=== PATIENT | male | born 1990 | race Caucasian/White ===

== ENCOUNTER 2019-03-12 12:32 | Inpatient (IN) | payer OTHER ==
[2019-03-12 13:09] VITALS: BMI 50.1
--- NOTE | 2019-03-12 14:30 | HP ---
CIWA Score Nausea/Vomitin-Mild Nausea/No Vomiting Muscle Tremors: 3 Anxiety: 3 Agitation: 3 Paroxysmal Sweats: No Perspiration Orientation: 0-Oriented Tacttile Disturbances: 0-None Auditory Disturbances: 0-None Visual Disturbances: 0-None Headache: 2-Mild CIWA-Ar Total Score: 12 - Admission Criteria OASAS Guidelines: Admission for Medically Managed Detox: Requires at least one of the followin. CIWA greater than 12 2. Seizures within the past 24 hours 3. Delirium tremens within the past 24 hours 4. Hallucinations within the past 24 hours 5. Acute intervention needed for co occurring medical disorder 6. Acute intervention needed for co occurring psychiatric disorder 7. Severe withdrawal that cannot be handled at a lower level of care (continued vomiting, continued diarrhea, abnormal vital signs) requiring intravenous medication and/or fluids 8. Admission ROS [facility] Chief Complaint: alcohol detox Allergies/Adverse Reactions: Allergies Allergy/AdvReac Type Severity Reaction Status Date / Time No Known Allergies Allergy Verified 03/12/19 12:40 History of Present Illness: 28 yo with h/o opioid use disorder on methadone 135mg, here for alcohol detox. h /o ADHD and learning disability. Also on seroquel 200mg BID and 400mg qhs Alcohol- states he drinks 10 cans of beer, no /o DT's, h/o seizures 6 years ago from xanax Prescribed Klonopin- 6mg/day Istop- klonopin #90 tabs every month, 02/2019 - Ebola screening Have you traveled outside of the country in the last 21 days: No Have you had contact with anyone from an Ebola affected area: No Do you have a fever: No - Review of Systems Constitutional: No Symptoms Reported EENT: reports: No Symptoms Reported Respiratory: reports: No Symptoms reported Cardiac: reports: No Symptoms Reported GI: reports: No Symptoms Reported : reports: No Symptoms Reported Musculoskeletal: reports: No Symptoms Reported Integumentary: reports: No Symptoms Reported Neuro: reports: No Symptoms reported Endocrine: reports: No Symptoms Reported Hematology: reports: No Symptoms Reported Psychiatric: reports: No Sypmtoms Reported Patient History - Patient Medical History Hx Anemia: No Hx Asthma: No Hx Chronic Obstructive Pulmonary Disease (COPD): No Hx Cardiac Disorders: No Hx Hypertension: No Hx Hypercholesterolemia: No HX Cerebrovascular Accident: No Hx Seizures: No (BLACKOUTS) Hx Diabetes: No Hx Gastrointestinal Disorders: No Hx Liver Disease: No Hx Genitourinary Disorders: No Hx Sexually Transmitted Disorders: No Hx Renal Disease (ESRD): No Hx Human Immunodeficiency Virus (HIV): No (NEGATIVE HX) Hx Hepatitis C: No Hx Depression: Yes Hx Suicide Attempt: No (DENIES) Hx Bipolar Disorder: Yes (AND ANXIETY ) Hx Schizophrenia: No - Patient Surgical History Past Surgical History: No Hx Neurologic Surgery: No Hx Cataract Extraction: No Hx Cardiac Surgery: No Hx Lung Surgery: No Hx Breast Surgery: No Hx Breast Biopsy: No Hx Abdominal Surgery: No Hx Appendectomy: No Hx Cholecystectomy: No Hx Genitourinary Surgery: No Hx Section: No Hx Orthopedic Surgery: No Anesthesia Reaction: No - PPD History Date: 11/18/13 - Reproductive History Patient : Yes - Smoking Cessation Smoking history: Current every day smoker Have you smoked in the past 12 months: Yes Aproximately how many cigarettes per day: 20 Hx Chewing Tobacco Use: No Initiated information on smoking cessation: Yes 'Breaking Loose' booklet given: 03/12/19 - Substance & Tx. History Hx Alcohol Use: Yes Hx Substance Use: Yes Substance Use Type: Alcohol, Marijuana, Prescribed, Tranquilizers - Substances abused Alcohol Substance route: Oral Frequency: Daily Amount used: 24 cans of beers Age of first use: 23 Date of last use: 03/11/19 Admission Physical Exam [facility] - Vital Signs Vital Signs: Vital Signs - 24 hr 03/12/19 12:52 Temperature 97.2 F L Pulse Rate 137 H Respiratory 22 H Rate Blood Pressure 151/105 H - Physical General Appearance: Yes: Mild Distress, Obese, Sweating HEENTM: Yes: Within Normal Limits, Hearing grossly Normal, Normal ENT Inspection Respiratory: Yes: Within Normal Limits, Lungs Clear Neck: Yes: Within Normal Limits Cardiology: Yes: Within Normal Limits, Tachycardia Abdominal: Yes: Within Normal Limits, Protuberent Back: Yes: Within Normal Limits Musculoskeletal: Yes: Within Normal Limits Extremities: Yes: Within Normal Limits Neurological: Yes: Within Normal Limits, Fully Oriented, Other (slow speech- appropriate) Integumentary: Yes: Within Normal Limits Lymphatic: Yes: Within Normal Limits - Diagnostic (1) Alcohol dependence with uncomplicated withdrawal Current Visit: No Status: Acute (2) Cannabis dependence Current Visit: No Status: Acute (3) Bipolar disorder Current Visit: No Status: Chronic Qualifiers: Active/Remission status: remission status unspecified Qualified Code(s): F31.9 - Bipolar disorder, unspecified (4) Cigarette nicotine dependence Current Visit: No Status: Chronic Qualifiers: Substance use status: uncomplicated Qualified Code(s): F17.210 - Nicotine dependence, cigarettes, uncomplicated (5) Methadone maintenance therapy patient Current Visit: No Status: Chronic Breathalyzer - Breathalyzer Breathalyzer: 0 Urine Drug Screen - Test Device Lot number: [id number] Expiration date: 11/17/20 - Control Is test valid?: Yes - Results Drug screen NEGATIVE: Yes Urine drug screen results: THC-Marijuana, MTD-Methadone Inpatient Rehab Admission - Rehab Decision to Admit Inpatient rehab admission?: No
[2019-03-12] MEDS ORDERED: MAGNESIUM CITRATE 300 ML BOTTLE PO PRN (14:39)
[2019-03-12] MEDS ORDERED: BISMUTH SUBSALICYLATE 524 MG/30 ML UD PO PRN (14:39)
[2019-03-12] MEDS ORDERED: MAGNESIUM HYDROX 2400MG/30ML ORAL SUSPENSION 30 ML CUP PO PRN (14:39)
[2019-03-12] MEDS ORDERED: hydrOXYzine PAMOATE 25 MG CAPSULE (FP) PO PRN (14:39)
[2019-03-12] MEDS ORDERED: MENTHOL/PHENOL 1 EACH UD MM PRN (14:39)
[2019-03-12] MEDS ORDERED: QUEtiapine FUMARATE 200 MG TABLET PO PRN (14:39)
[2019-03-12] MEDS ORDERED: ACETAMINOPHEN 325 MG TABLET (FP) PO PRN ×2 (14:39)
[2019-03-12] MEDS ORDERED: METHOCARBAMOL 500 MG TABLET PO PRN (14:39)
[2019-03-12] MEDS: chlordiazePOXIDE HCL 25 MG CAPSULE PO PRN (17:09)
[2019-03-12 18:15] LABS: BILIRUBIN,TOTAL 0.3 mg/dL (0.2-1); CALCIUM 9.5 mg/dL (8.5-10.1); CREATININE 0.9 mg/dL (0.55-1.3); POTASSIUM 3.9 mmol/L (3.5-5.1); TOT PROT 7.9 g/dl (6.4-8.2)
[2019-03-12 18:19] LABS: HEMATOCRIT 39.6 % (35.4-49); HEMOGLOBIN 12.1 GM/dL (11.7-16.9); MCHC 30.7 g/dl (32.0-35.9); MEAN CELL VOLUME 64.7 fl (80-96); MEAN PLT VOLUME 8.7 fl (7.5-11.1); PLATELET COUNT 226 K/MM3 (134-434); RBC 6.12 M/mm3 (4.00-5.60); WHITE BLOOD COUNT 7.5 K/mm3 (4.0-10.0)
[2019-03-12 18:30] LABS: MCH 19.8 pg (25.7-33.7)
[2019-03-12] MEDS: NICOTINE POLACRILEX 2 MG GUM BUC PRN ×2 (18:47→22:11)
[2019-03-12] MEDS: chlordiazePOXIDE HCL 25 MG CAPSULE PO SCH (22:09)
[2019-03-12] MEDS: THIAMINE HCL 100 MG TABLET (FP) PO SCH (22:09)
[2019-03-12] MEDS: MELATONIN 5 MG TABLETS PO PRN (22:10)
[2019-03-12] MEDS: MAG HYDROX/AL HYDROX/SIMETH 30 ML UNIT-DOSE CUP PO PRN (22:52)
[2019-03-13] MEDS: chlordiazePOXIDE HCL 25 MG CAPSULE PO SCH ×4 (05:34→22:17)
[2019-03-13] MEDS ORDERED: METHADONE HCL 10 MG TABLET ONE (09:10)
[2019-03-13] MEDS ORDERED: METHADONE HCL 5 MG TABLET ONE (09:11)
[2019-03-13] MEDS ORDERED: METHADONE HCL 40 MG DISPERSABLE TABLET ONE (09:11)
[2019-03-13] MEDS: NICOTINE 21 MG/24 HOURS TOPICAL PATCH TD SCH (09:31)
[2019-03-13] MEDS: PRENATAL VITAMINS W/ FOLIC ACID TABLET (FP) PO SCH (09:32)
[2019-03-13] MEDS ORDERED: METHADONE HCL 10 MG TABLET PO ONE (10:00)
[2019-03-13] MEDS ORDERED: METHADONE 120 MG, METHADONE 10 MG, METHADONE 5 MG PO ONE (10:00)
[2019-03-13 12:42] LABS: PH,URINE 6.5 (5.0-8.0); URINE APPEARANCE CLEAR; URINE BILIRUBIN NEGATIVE (NEGATIVE); URINE COLOR YELLOW; URINE GLUCOSE (UA) NEGATIVE (NEGATIVE); URINE KETONE NEGATIVE (NEGATIVE); URINE LEUK ESTERASE NEGATIVE (NEGATIVE); URINE NITRITE NEGATIVE (NEGATIVE); URINE PROTEIN NEGATIVE (NEGATIVE)
[2019-03-13] MEDS: chlordiazePOXIDE HCL 25 MG CAPSULE PO PRN (13:01)
--- NOTE | 2019-03-13 13:12 | PN ---
[facility] CIWA - CIWA Score Nausea/Vomitin-Mild Nausea/No Vomiting Muscle Tremors: 3 Anxiety: 3 Agitation: 3 Paroxysmal Sweats: 2 Orientation: 1-Uncertain about Date Tacttile Disturbances: 1-Very Mild Itch/Numbness Auditory Disturbances: 0-None Visual Disturbances: 0-None Headache: 0-None Present CIWA-Ar Total Score: 14 [facility] Progress Note (SOAP) Subjective: received methadone 135 mg po today feeling better resting in bed comfortably but tremor and sweating restless at time Objective: 03/13/19 13:08 Vital Signs Temperature 97 F L 03/13/19 06:12 Pulse Rate 73 03/13/19 06:12 Respiratory Rate 20 03/13/19 06:12 Blood Pressure 124/87 03/13/19 06:12 O2 Sat by Pulse Oximetry (%) Laboratory Last Values WBC 7.5 K/mm3 (4.0-10.0) 03/12/19 15:00 RBC 6.12 M/mm3 (4.00-5.60) H 03/12/19 15:00 Hgb 12.1 GM/dL (11.7-16.9) 03/12/19 15:00 Hct 39.6 % (35.4-49) 03/12/19 15:00 MCV 64.7 fl (80-96) L 03/12/19 15:00 MCH 19.8 pg (25.7-33.7) L 03/12/19 15:00 MCHC 30.7 g/dl (32.0-35.9) L 03/12/19 15:00 RDW 17.0 % (11.9-15.9) H 03/12/19 15:00 Plt Count 226 K/MM3 (134-434) 03/12/19 15:00 MPV 8.7 fl (7.5-11.1) 03/12/19 15:00 Sodium 138 mmol/L (136-145) 03/12/19 15:00 Potassium 3.9 mmol/L (3.5-5.1) 03/12/19 15:00 Chloride 101 mmol/L (98-107) 03/12/19 15:00 Carbon Dioxide 27 mmol/L (21-32) 03/12/19 15:00 Anion Gap 10 MMOL/L (8-16) 03/12/19 15:00 BUN 10.0 mg/dL (7-18) 03/12/19 15:00 Creatinine 0.9 mg/dL (0.55-1.3) 03/12/19 15:00 Est GFR (CKD-EPI)AfAm 132.37 03/12/19 15:00 Est GFR (CKD-EPI)NonAf 114.21 03/12/19 15:00 Random Glucose 92 mg/dL (74-106) 03/12/19 15:00 Calcium 9.5 mg/dL (8.5-10.1) 03/12/19 15:00 Total Bilirubin 0.3 mg/dL (0.2-1) 03/12/19 15:00 AST 51 U/L (15-37) H 03/12/19 15:00 ALT 81 U/L (13-61) H 03/12/19 15:00 Alkaline Phosphatase 121 U/L (45-117) H 03/12/19 15:00 Total Protein 7.9 g/dl (6.4-8.2) 03/12/19 15:00 Albumin 4.0 g/dl (3.4-5.0) 03/12/19 15:00 Urine Color Yellow 03/13/19 10:40 Urine Appearance Clear 03/13/19 10:40 Urine pH 6.5 (5.0-8.0) D 03/13/19 10:40 Ur Specific [place] 1.020 (1.010-1.035) 03/13/19 10:40 Urine Protein Negative (NEGATIVE) 03/13/19 10:40 Urine Glucose (UA) Negative (NEGATIVE) 03/13/19 10:40 Urine Ketones Negative (NEGATIVE) 03/13/19 10:40 Urine Blood Negative (NEGATIVE) 03/13/19 10:40 Urine Nitrite Negative (NEGATIVE) 03/13/19 10:40 Urine Bilirubin Negative (NEGATIVE) 03/13/19 10:40 Urine Urobilinogen 1.0 mg/dL (0.2-1.0) 03/13/19 10:40 Ur Leukocyte Esterase Negative (NEGATIVE) 03/13/19 10:40 RPR Titer Nonreactive (NONREACTIVE) 03/12/19 15:00 lab noted Assessment: 03/13/19 13:13 alcohol withdrawal sx Plan: continue librium detox regimen
--- NOTE | 2019-03-13 13:17 | CONSULT ---
[facility] Psychiatric Consult - Data Date of interview: 03/13/19 Admission source: [facility] Identifying data: Readmission to [facility] for this 28 y/o male self- referred for detoxification. TARI disorders : alcohol, cannabis, nicotine. Interviewed at [address] [place] [address]. Patient is single, a father of one, domiciled, unemployed and supported on odd jobs. Substance Abuse History: Discussed in this session. Details in current [facility] report as follows : Smoking history: Current every day smoker. Have you smoked in the past 12 months: Yes. Aproximately how many cigarettes per day: 20. Hx Chewing Tobacco Use: No. Initiated information on smoking cessation: Yes. ' Breaking Loose' booklet given: 03/12/19. - Substance & Tx. History. Hx Alcohol Use: Yes. Hx Substance Use: Yes. Substance Use Type: Alcohol, Marijuana, Prescribed, Tranquilizers. - Substances abused. Alcohol. Substance route: Oral. Frequency: Daily. Amount used: 24 cans of beers. Age of first use: 23. Date of last use: 03/11/19 Medical History: Morbid obesity and chronic lumbar pain. Psychiatric History: No reported history of psychiatric hospitalizations. Patient indicates that he has been diagnosed with Bipolar Disorder and ADHD. Mr Quiles sees a psychiatrist in [facility] for medication management. He is prescribed a regimen of seroquel 200 mg po am/400 mg/hs + adderall 20 mg/daily. Patient denies history of suicide attempts. He is currently on methadone maintenance (135 mg/day) at the [facility] program. Physical/Sexual Abuse/Trauma History: Denies. Additional Comment: Urine drug screen results: THC-Marijuana, MTD-Methadone. Noted. Mental Status Exam - Mental Status Exam Alert and Oriented to: Time, Place, Person Patient Appearance: Well Groomed (morbidly obese.) Mood: Anxious, Apprehensive Affect: Mood Congruent Patient Behavior: Fatigued, Appropriate, Cooperative Speech Pattern: Clear Voice Loudness: Normal Thought Process: Intact, Goal Oriented Thought Disorder: Not Present Hallucinations: Denies Suicidal Ideation: Denies Homicidal Ideation: Denies Insight/Judgement: Poor Sleep: Poorly, Difficulty falling asleep Appetite: Good Muscle strength/Tone: Normal Gait/Station: Normal Psychiatric Findings - Problem List ([place] 1, 2,3) (1) Alcohol dependence with uncomplicated withdrawal Current Visit: Yes Status: Acute (2) Opioid dependence on agonist therapy Current Visit: Yes Status: Chronic (3) Cannabis dependence Current Visit: Yes Status: Chronic (4) Bipolar disorder Current Visit: Yes Status: Chronic Qualifiers: Active/Remission status: remission status unspecified Qualified Code(s): F31.9 - Bipolar disorder, unspecified (5) Insomnia Current Visit: Yes Status: Chronic - Initial Treatment Plan Initial Treatment Plan: Psychoeducation. Records revisited ([facility]). Support. AA/ NA meetings. Seroquel 200 mg po bid. Side effects/benefits discussed with patient. he gave verbal consent to Observation.
[2019-03-13] MEDS: MAG HYDROX/AL HYDROX/SIMETH 30 ML UNIT-DOSE CUP PO PRN ×2 (14:34→20:16)
[2019-03-13] MEDS: QUEtiapine FUMARATE 200 MG TABLET PO SCH ×2 (14:34→22:17)
[2019-03-13] MEDS: THIAMINE HCL 100 MG TABLET (FP) PO SCH (22:17)
[2019-03-14] MEDS ORDERED: METHADONE HCL 10 MG TABLET ONE (04:40)
[2019-03-14] MEDS ORDERED: METHADONE HCL 5 MG TABLET ONE (04:40)
[2019-03-14] MEDS ORDERED: METHADONE HCL 40 MG DISPERSABLE TABLET ONE (04:40)
[2019-03-14] MEDS: chlordiazePOXIDE HCL 25 MG CAPSULE PO SCH ×4 (05:35→22:06)
[2019-03-14] MEDS ORDERED: METHADONE 120 MG, METHADONE 10 MG, METHADONE 5 MG PO SCH (06:00)
[2019-03-14] MEDS ORDERED: METHADONE HCL 40 MG DISPERSABLE TABLET PO SCH (06:00)
[2019-03-14] MEDS: QUEtiapine FUMARATE 200 MG TABLET PO SCH ×2 (10:13→22:06)
[2019-03-14] MEDS: PRENATAL VITAMINS W/ FOLIC ACID TABLET (FP) PO SCH (10:13)
[2019-03-14] MEDS: NICOTINE 21 MG/24 HOURS TOPICAL PATCH TD SCH (10:15)
[2019-03-14] MEDS: MAG HYDROX/AL HYDROX/SIMETH 30 ML UNIT-DOSE CUP PO PRN (10:26)
--- NOTE | 2019-03-14 11:47 | PN ---
[facility] CIWA - CIWA Score Nausea/Vomitin-Mild Nausea/No Vomiting Muscle Tremors: 2 Anxiety: 3 Agitation: 3 Paroxysmal Sweats: 2 Orientation: 1-Uncertain about Date (date of week) Tacttile Disturbances: 0-None Auditory Disturbances: 0-None Visual Disturbances: 0-None Headache: 0-None Present CIWA-Ar Total Score: 12 [facility] Progress Note (SOAP) Subjective: doing well with librium detox regimen request methadone to be given at 10 am Objective: 03/14/19 11:46 Vital Signs Temperature 97.8 F 03/14/19 09:50 Pulse Rate 107 H 03/14/19 09:50 Respiratory Rate 18 03/14/19 09:50 Blood Pressure 158/96 03/14/19 09:50 O2 Sat by Pulse Oximetry (%) Laboratory Last Values WBC 7.5 K/mm3 (4.0-10.0) 03/12/19 15:00 RBC 6.12 M/mm3 (4.00-5.60) H 03/12/19 15:00 Hgb 12.1 GM/dL (11.7-16.9) 03/12/19 15:00 Hct 39.6 % (35.4-49) 03/12/19 15:00 MCV 64.7 fl (80-96) L 03/12/19 15:00 MCH 19.8 pg (25.7-33.7) L 03/12/19 15:00 MCHC 30.7 g/dl (32.0-35.9) L 03/12/19 15:00 RDW 17.0 % (11.9-15.9) H 03/12/19 15:00 Plt Count 226 K/MM3 (134-434) 03/12/19 15:00 MPV 8.7 fl (7.5-11.1) 03/12/19 15:00 Sodium 138 mmol/L (136-145) 03/12/19 15:00 Potassium 3.9 mmol/L (3.5-5.1) 03/12/19 15:00 Chloride 101 mmol/L (98-107) 03/12/19 15:00 Carbon Dioxide 27 mmol/L (21-32) 03/12/19 15:00 Anion Gap 10 MMOL/L (8-16) 03/12/19 15:00 BUN 10.0 mg/dL (7-18) 03/12/19 15:00 Creatinine 0.9 mg/dL (0.55-1.3) 03/12/19 15:00 Est GFR (CKD-EPI)AfAm 132.37 03/12/19 15:00 Est GFR (CKD-EPI)NonAf 114.21 03/12/19 15:00 Random Glucose 92 mg/dL (74-106) 03/12/19 15:00 Calcium 9.5 mg/dL (8.5-10.1) 03/12/19 15:00 Total Bilirubin 0.3 mg/dL (0.2-1) 03/12/19 15:00 AST 51 U/L (15-37) H 03/12/19 15:00 ALT 81 U/L (13-61) H 03/12/19 15:00 Alkaline Phosphatase 121 U/L (45-117) H 03/12/19 15:00 Total Protein 7.9 g/dl (6.4-8.2) 03/12/19 15:00 Albumin 4.0 g/dl (3.4-5.0) 03/12/19 15:00 Urine Color Yellow 03/13/19 10:40 Urine Appearance Clear 03/13/19 10:40 Urine pH 6.5 (5.0-8.0) D 03/13/19 10:40 Ur Specific [place] 1.020 (1.010-1.035) 03/13/19 10:40 Urine Protein Negative (NEGATIVE) 03/13/19 10:40 Urine Glucose (UA) Negative (NEGATIVE) 03/13/19 10:40 Urine Ketones Negative (NEGATIVE) 03/13/19 10:40 Urine Blood Negative (NEGATIVE) 03/13/19 10:40 Urine Nitrite Negative (NEGATIVE) 03/13/19 10:40 Urine Bilirubin Negative (NEGATIVE) 03/13/19 10:40 Urine Urobilinogen 1.0 mg/dL (0.2-1.0) 03/13/19 10:40 Ur Leukocyte Esterase Negative (NEGATIVE) 03/13/19 10:40 RPR Titer Nonreactive (NONREACTIVE) 03/12/19 15:00 lab noted 03/14/19 11:49 bp elevation begin amlodipine Assessment: 03/14/19 11:49 alcohol withdrawal sx Plan: continue librium detox regimen
[2019-03-14] MEDS: amLODIPine BESYLATE 10 MG TABLET (FP) PO SCH (12:14)
[2019-03-14] MEDS: chlordiazePOXIDE HCL 25 MG CAPSULE PO PRN (12:15)
[2019-03-14] MEDS ORDERED: cloNIDine HCL 0.1 MG TABLET PO ONE (20:04)
[2019-03-14] MEDS: THIAMINE HCL 100 MG TABLET (FP) PO SCH (22:06)
[2019-03-14] MEDS: MELATONIN 5 MG TABLETS PO PRN (22:06)
[2019-03-15] MEDS ORDERED: chlordiazePOXIDE HCL 10 MG CAPSULE PO PRN
[2019-03-15] MEDS: chlordiazePOXIDE HCL 10 MG CAPSULE PO SCH ×4 (05:23→22:17)
[2019-03-15] MEDS ORDERED: METHADONE HCL 10 MG TABLET ONE (08:40)
[2019-03-15] MEDS ORDERED: METHADONE HCL 5 MG TABLET ONE (08:41)
[2019-03-15] MEDS ORDERED: METHADONE HCL 40 MG DISPERSABLE TABLET ONE (08:41)
[2019-03-15] MEDS: NICOTINE 21 MG/24 HOURS TOPICAL PATCH TD SCH (10:43)
[2019-03-15] MEDS: PRENATAL VITAMINS W/ FOLIC ACID TABLET (FP) PO SCH (10:44)
[2019-03-15] MEDS: QUEtiapine FUMARATE 200 MG TABLET PO SCH ×2 (10:44→22:17)
[2019-03-15] MEDS: METHADONE 120 MG, METHADONE 10 MG, METHADONE 5 MG PO SCH (10:44)
[2019-03-15] MEDS: amLODIPine BESYLATE 10 MG TABLET (FP) PO SCH (10:44)
--- NOTE | 2019-03-15 11:33 | PN ---
[facility] CIWA - CIWA Score Nausea/Vomitin-No Nausea/No Vomiting Muscle Tremors: 2 Anxiety: 2 Agitation: 2 Paroxysmal Sweats: 1-Minimal Palms Moist Orientation: 0-Oriented Tacttile Disturbances: 1-Very Mild Itch/Numbness Auditory Disturbances: 0-None Visual Disturbances: 0-None Headache: 0-None Present CIWA-Ar Total Score: 8 S Progress Note (SOAP) Subjective: doing well with methadone 135 mg po at 10 am less tremor mild anxiety Objective: 03/15/19 11:32 Vital Signs Temperature 97.2 F L 03/15/19 09:26 Pulse Rate 81 03/15/19 09:26 Respiratory Rate 18 03/15/19 09:26 Blood Pressure 104/72 03/15/19 09:26 O2 Sat by Pulse Oximetry (%) Laboratory Last Values WBC 7.5 K/mm3 (4.0-10.0) 03/12/19 15:00 RBC 6.12 M/mm3 (4.00-5.60) H 03/12/19 15:00 Hgb 12.1 GM/dL (11.7-16.9) 03/12/19 15:00 Hct 39.6 % (35.4-49) 03/12/19 15:00 MCV 64.7 fl (80-96) L 03/12/19 15:00 MCH 19.8 pg (25.7-33.7) L 03/12/19 15:00 MCHC 30.7 g/dl (32.0-35.9) L 03/12/19 15:00 RDW 17.0 % (11.9-15.9) H 03/12/19 15:00 Plt Count 226 K/MM3 (134-434) 03/12/19 15:00 MPV 8.7 fl (7.5-11.1) 03/12/19 15:00 Sodium 138 mmol/L (136-145) 03/12/19 15:00 Potassium 3.9 mmol/L (3.5-5.1) 03/12/19 15:00 Chloride 101 mmol/L (98-107) 03/12/19 15:00 Carbon Dioxide 27 mmol/L (21-32) 03/12/19 15:00 Anion Gap 10 MMOL/L (8-16) 03/12/19 15:00 BUN 10.0 mg/dL (7-18) 03/12/19 15:00 Creatinine 0.9 mg/dL (0.55-1.3) 03/12/19 15:00 Est GFR (CKD-EPI)AfAm 132.37 03/12/19 15:00 Est GFR (CKD-EPI)NonAf 114.21 03/12/19 15:00 POC Glucometer 98 UNITS (80-120) 03/15/19 06:39 Random Glucose 92 mg/dL (74-106) 03/12/19 15:00 Calcium 9.5 mg/dL (8.5-10.1) 03/12/19 15:00 Total Bilirubin 0.3 mg/dL (0.2-1) 03/12/19 15:00 AST 51 U/L (15-37) H 03/12/19 15:00 ALT 81 U/L (13-61) H 03/12/19 15:00 Alkaline Phosphatase 121 U/L (45-117) H 03/12/19 15:00 Total Protein 7.9 g/dl (6.4-8.2) 03/12/19 15:00 Albumin 4.0 g/dl (3.4-5.0) 03/12/19 15:00 Urine Color Yellow 03/13/19 10:40 Urine Appearance Clear 03/13/19 10:40 Urine pH 6.5 (5.0-8.0) D 03/13/19 10:40 Ur Specific [place] 1.020 (1.010-1.035) 03/13/19 10:40 Urine Protein Negative (NEGATIVE) 03/13/19 10:40 Urine Glucose (UA) Negative (NEGATIVE) 03/13/19 10:40 Urine Ketones Negative (NEGATIVE) 03/13/19 10:40 Urine Blood Negative (NEGATIVE) 03/13/19 10:40 Urine Nitrite Negative (NEGATIVE) 03/13/19 10:40 Urine Bilirubin Negative (NEGATIVE) 03/13/19 10:40 Urine Urobilinogen 1.0 mg/dL (0.2-1.0) 03/13/19 10:40 Ur Leukocyte Esterase Negative (NEGATIVE) 03/13/19 10:40 RPR Titer Nonreactive (NONREACTIVE) 03/12/19 15:00 lab noted Assessment: 03/15/19 11:32 alcohol withdrawal sx Plan: continue librium detox regimen
[2019-03-15] MEDS: cloNIDine HCL 0.1 MG TABLET PO PRN (18:03)
[2019-03-15] MEDS: MAG HYDROX/AL HYDROX/SIMETH 30 ML UNIT-DOSE CUP PO PRN (18:28)
[2019-03-15] MEDS: THIAMINE HCL 100 MG TABLET (FP) PO SCH (22:17)
[2019-03-16] MEDS: chlordiazePOXIDE HCL 10 MG CAPSULE PO SCH ×2 (05:55→17:40)
[2019-03-16] MEDS ORDERED: METHADONE HCL 10 MG TABLET ONE (08:52)
[2019-03-16] MEDS ORDERED: METHADONE HCL 40 MG DISPERSABLE TABLET ONE (08:53)
[2019-03-16] MEDS ORDERED: METHADONE HCL 5 MG TABLET ONE (08:53)
[2019-03-16] MEDS: QUEtiapine FUMARATE 200 MG TABLET PO SCH ×2 (10:39→22:23)
[2019-03-16] MEDS: PRENATAL VITAMINS W/ FOLIC ACID TABLET (FP) PO SCH (10:39)
[2019-03-16] MEDS: NICOTINE 21 MG/24 HOURS TOPICAL PATCH TD SCH (10:39)
[2019-03-16] MEDS: IBUPROFEN 400 MG TABLET (FP) PO PRN (10:40)
[2019-03-16] MEDS: METHADONE 120 MG, METHADONE 10 MG, METHADONE 5 MG PO SCH (10:40)
[2019-03-16] MEDS: amLODIPine BESYLATE 10 MG TABLET (FP) PO SCH (10:43)
[2019-03-16] MEDS: cloNIDine HCL 0.1 MG TABLET PO PRN ×2 (13:43→22:24)
--- NOTE | 2019-03-16 15:13 | PN ---
[facility] CIWA - CIWA Score Nausea/Vomitin-No Nausea/No Vomiting Muscle Tremors: None Anxiety: 0-No Anxiety, at Ease Agitation: 2 Paroxysmal Sweats: No Perspiration Orientation: 0-Oriented Tacttile Disturbances: 0-None Auditory Disturbances: 0-None Visual Disturbances: 0-None Headache: 0-None Present CIWA-Ar Total Score: 2 [facility] Progress Note (SOAP) Subjective: Patient denies current Withdrawal / Detox symptoms and reports that he feels well overall at this time. Objective: PATIENT A & O X 3, OBSERVED AMBULATING ON DETOX UNIT UNASSISTED. IN NO ACUTE DISTRESS. 03/16/19 15:12 Vital Signs Temperature 96.7 F L 03/16/19 09:24 Pulse Rate 99 H 03/16/19 14:02 Respiratory Rate 20 03/16/19 14:02 Blood Pressure 153/98 03/16/19 14:02 O2 Sat by Pulse Oximetry (%) Laboratory Tests 03/12/19 03/12/19 03/12/19 15:00 15:00 15:00 WBC 7.5 RBC 6.12 H Hgb 12.1 Hct 39.6 MCV 64.7 L MCH 19.8 L MCHC 30.7 L RDW 17.0 H Plt Count 226 MPV 8.7 Sodium 138 Potassium 3.9 Chloride 101 Carbon Dioxide 27 Anion Gap 10 BUN 10.0 Creatinine 0.9 Est GFR (CKD-EPI)AfAm 132.37 Est GFR (CKD-EPI)NonAf 114.21 POC Glucometer Random Glucose 92 Calcium 9.5 Total Bilirubin 0.3 AST 51 H ALT 81 H Alkaline Phosphatase 121 H Total Protein 7.9 Albumin 4.0 Urine Color Urine Appearance Urine pH Ur Specific [place] Urine Protein Urine Glucose (UA) Urine Ketones Urine Blood Urine Nitrite Urine Bilirubin Urine Urobilinogen Ur Leukocyte Esterase RPR Titer Nonreactive 03/13/19 03/15/19 10:40 06:39 WBC RBC Hgb Hct MCV MCH MCHC RDW Plt Count MPV Sodium Potassium Chloride Carbon Dioxide Anion Gap BUN Creatinine Est GFR (CKD-EPI)AfAm Est GFR (CKD-EPI)NonAf POC Glucometer 98 Random Glucose Calcium Total Bilirubin AST ALT Alkaline Phosphatase Total Protein Albumin Urine Color Yellow Urine Appearance Clear Urine pH 6.5 D Ur Specific [place] 1.020 Urine Protein Negative Urine Glucose (UA) Negative Urine Ketones Negative Urine Blood Negative Urine Nitrite Negative Urine Bilirubin Negative Urine Urobilinogen 1.0 Ur Leukocyte Esterase Negative RPR Titer LABS NOTED. Assessment: 03/16/19 15:13 WITHDRAWAL SYMPTOMS. ELEVATED LIVER ENZYMES. ELEVATED BLOOD PRESSURE (PATIENT DENIES KNOWN HISTORY OF HYPERTENSION ON DETOX ADMISSION HISTORY AND PHYSICAL EXAMINATION). 03/16/19 15:14 Plan: CONTINUE DETOX. CONTINUE TO MONITOR BLOOD PRESSURE (PATIENT CURRENTLY PRESCRIBED AMLODIPINE, 10 MG PO DAILY FOR TREATMENT OF ELEVATED BLOOD PRESSURE WHILE ADMITTED ON DETOX UNIT ). PATIENT SCHEDULED FOR D/C FROM DETOX UNIT TOMORROW.
[2019-03-16] MEDS: MAG HYDROX/AL HYDROX/SIMETH 30 ML UNIT-DOSE CUP PO PRN (20:57)
[2019-03-16] MEDS: THIAMINE HCL 100 MG TABLET (FP) PO SCH (22:23)
[2019-03-16] MEDS: MELATONIN 5 MG TABLETS PO PRN (22:24)
[2019-03-17] MEDS ORDERED: chlordiazePOXIDE HCL 10 MG CAPSULE PO ONE (05:00)
[2019-03-17 06:35] VITALS: TEMP 97
[2019-03-17] MEDS ORDERED: METHADONE HCL 10 MG TABLET ONE (08:45)
[2019-03-17] MEDS ORDERED: METHADONE HCL 5 MG TABLET ONE (08:46)
[2019-03-17] MEDS ORDERED: METHADONE HCL 40 MG DISPERSABLE TABLET ONE (08:46)
[2019-03-17] MEDS: METHADONE 120 MG, METHADONE 10 MG, METHADONE 5 MG PO SCH (09:31)
[2019-03-17] MEDS: PRENATAL VITAMINS W/ FOLIC ACID TABLET (FP) PO SCH (09:32)
[2019-03-17] MEDS: amLODIPine BESYLATE 10 MG TABLET (FP) PO SCH (09:32)
[2019-03-17] MEDS: QUEtiapine FUMARATE 200 MG TABLET PO SCH (09:32)
[2019-03-17] MEDS: IBUPROFEN 400 MG TABLET (FP) PO PRN (09:35)
[2019-03-17 09:40] VITALS: BP 132/87; PULSE 82
[2019-03-17] MEDS: NICOTINE 21 MG/24 HOURS TOPICAL PATCH TD SCH (10:41)
--- NOTE | 2019-03-17 18:34 | DS ---
[facility] Detox Discharge Summary Admission Date: 03/12/19 Discharge Date: 03/17/19 - History Present History: Alcohol Dependence, Cannabis Dependence, Opioid Dependence Additional Comments: PATIENT WILL RETURN TO [facility].M.T.P[facility] PROGRAM, WHERE HE WAS PREVIOUSLY A CLIENT, FOR AFTERCARE. PATIENT ALSO ADVISED TO CONSIDER LOCAL 12-STEP / NA / AA OUTPATIENT SUPPORT GROUPS FOR AFTERCARE. PATIENT WAS DISCHARGED FROM DETOX UNIT IN STABLE MEDICAL CONDITION. Pertinent Past History: History Of A.D.H.D., Depression, Bipolar Disorder, Anxiety, M.M.T.P., Nicotine Dependence, History Of blackouts, Elevated Blood Pressure Reading Without Diagnosis Of Hypertension, Insomnia. - Physical Exam Results Vital Signs: Vital Signs Temperature 97 F L 03/17/19 09:39 Pulse Rate 82 03/17/19 09:39 Respiratory Rate 20 03/17/19 09:39 Blood Pressure 132/87 03/17/19 09:39 O2 Sat by Pulse Oximetry (%) Pertinent Admission Physical Exam Findings: WITHDRAWAL SYMPTOMS. Laboratory Tests 03/12/19 03/12/19 03/12/19 15:00 15:00 15:00 WBC 7.5 RBC 6.12 H Hgb 12.1 Hct 39.6 MCV 64.7 L MCH 19.8 L MCHC 30.7 L RDW 17.0 H Plt Count 226 MPV 8.7 Sodium 138 Potassium 3.9 Chloride 101 Carbon Dioxide 27 Anion Gap 10 BUN 10.0 Creatinine 0.9 Est GFR (CKD-EPI)AfAm 132.37 Est GFR (CKD-EPI)NonAf 114.21 POC Glucometer Random Glucose 92 Calcium 9.5 Total Bilirubin 0.3 AST 51 H ALT 81 H Alkaline Phosphatase 121 H Total Protein 7.9 Albumin 4.0 Urine Color Urine Appearance Urine pH Ur Specific [place] Urine Protein Urine Glucose (UA) Urine Ketones Urine Blood Urine Nitrite Urine Bilirubin Urine Urobilinogen Ur Leukocyte Esterase RPR Titer Nonreactive 03/13/19 03/15/19 10:40 06:39 WBC RBC Hgb Hct MCV MCH MCHC RDW Plt Count MPV Sodium Potassium Chloride Carbon Dioxide Anion Gap BUN Creatinine Est GFR (CKD-EPI)AfAm Est GFR (CKD-EPI)NonAf POC Glucometer 98 Random Glucose Calcium Total Bilirubin AST ALT Alkaline Phosphatase Total Protein Albumin Urine Color Yellow Urine Appearance Clear Urine pH 6.5 D Ur Specific [place] 1.020 Urine Protein Negative Urine Glucose (UA) Negative Urine Ketones Negative Urine Blood Negative Urine Nitrite Negative Urine Bilirubin Negative Urine Urobilinogen 1.0 Ur Leukocyte Esterase Negative RPR Titer LABS NOTED. - Treatment Hospital Course: Detox Protocol Followed, Detoxed Safely, Responded well, Discharged Condition Good Patient has Accepted a Rehab Referral to: PATIENT RETURNING TO PREVIOUS [facility] PROGRAM. - Medication Discharge Medications: Ambulatory Orders Quetiapine Fumarate [Seroquel -] 600 mg PO DAILY 03/12/19 - Diagnosis (1) Alcohol dependence with uncomplicated withdrawal Status: Acute (2) Bipolar disorder Status: Chronic Qualifiers: Active/Remission status: remission status unspecified Qualified Code(s): F31.9 - Bipolar disorder, unspecified (3) Cannabis dependence Status: Chronic (4) Cigarette nicotine dependence Status: Chronic Qualifiers: Substance use status: uncomplicated Qualified Code(s): F17.210 - Nicotine dependence, cigarettes, uncomplicated (5) Insomnia Status: Chronic Qualifiers: Insomnia type: unspecified Qualified Code(s): G47.00 - Insomnia, unspecified (6) Methadone maintenance therapy patient Status: Chronic (7) Elevated liver enzymes Status: Acute (8) Elevated blood pressure reading without diagnosis of hypertension Status: Acute - AMA Did Patient Leave Against Medical Advice: No [facility] CIWA - CIWA Score Nausea/Vomitin-No Nausea/No Vomiting Muscle Tremors: None Anxiety: 0-No Anxiety, at Ease Agitation: 2 Paroxysmal Sweats: No Perspiration Orientation: 0-Oriented Tacttile Disturbances: 0-None Auditory Disturbances: 0-None Visual Disturbances: 0-None Headache: 0-None Present CIWA-Ar Total Score: 2
== END 2019-03-17 09:40 | disposition home or self-care (01) | DRG 773 ==
LOC: YASAS 12:32 → Y3N 16:30
PROVIDERS: ADMIT Surgery; ATTEND Surgery
PROC: HZ2ZZZZ Detoxification Services for Substance Abuse Treatment (ICD-10-PCS; principal; 2019-03-12)
DX: F10.230 Alcohol dependence with withdrawal, uncomplicated (principal); F11.20 Opioid dependence, uncomplicated; F12.20 Cannabis dependence, uncomplicated; F17.210 Nicotine dependence, cigarettes, uncomplicated; F31.9 Bipolar disorder, unspecified; F41.9 Anxiety disorder, unspecified; F90.9 Attention-deficit hyperactivity disorder, unspecified type; G47.00 Insomnia, unspecified; R03.0 Elevated blood-pressure reading, without diagnosis of hypertension; R94.5 Abnormal results of liver function studies; M54.5 Low back pain; G89.29 Other chronic pain; E66.01 Morbid (severe) obesity due to excess calories; Z68.43 Body mass index [BMI] 50.0-59.9, adult
CPT/HCPCS: 36415; 80053; 81003; 82962; 85027; 86593; J0735